=== PATIENT | male | born 1955 | race Caucasian/White ===

== ENCOUNTER 2016-08-26 20:46 | Emergency (ER) | payer OTHER ==
[~2016-08-26] VITALS: Ht 157.5 cm; Wt 52.6 kg
[~2016-08-26 20:46] MED LIST: ATOR20TA PO; CALC600T25 PO; DOCU-67 PO; GABA300C PO; TRAZ-289 PO
[2016-08-26 20:51] VITALS: BP 103/69
--- NOTE | 2016-08-27 02:19 | NUR ---
PATIENT LEFT WITHOUT BEING SEEN BY DR. ROSALES. NO FURTHER CARE PROVIDED FOR PATIENT.
== END 2016-08-27 02:19 | disposition left against medical advice (07) ==
LOC: MED 20:46
DX: R07.89 Other chest pain (principal); R06.02 Shortness of breath; F03.90 Unspecified dementia, unspecified severity, without behavioral disturbance, psychotic disturbance, mood disturbance, and anxiety; K21.9 Gastro-esophageal reflux disease without esophagitis; Z53.21 Procedure and treatment not carried out due to patient leaving prior to being seen by health care provider

== ENCOUNTER 2016-09-23 13:26 | Emergency (ER) | payer OTHER ==
[~2016-09-23] VITALS: Ht 160 cm; Wt 56.2 kg
[2016-09-23 13:47] VITALS: BP 110/72
--- NOTE | 2016-09-23 13:52 | NUR ---
MD BYRD PT TO WAIT IN ER LOBBY FOR AVAILABLE ROOM FOR EVAL
== END 2016-09-23 17:53 | disposition left against medical advice (07) ==
LOC: MED 13:26
DX: R10.13 Epigastric pain (principal); Z53.21 Procedure and treatment not carried out due to patient leaving prior to being seen by health care provider